=== PATIENT | male | born 1985 | race American Indian/Alaskan Native ===

== ENCOUNTER 2017-05-10 03:52 | Emergency (ER) | payer OTHER ==
--- NOTE | 2017-05-10 04:51 | XRay Report ---
FINAL REPORT EXAM: XR CHEST ROUTINE 2V HISTORY: Shortness of breath TECHNIQUE: PA and lateral views of the chest were submitted. FINDINGS: Heart size and mediastinum appear normal. The lungs are clear. Pleural fluid is not seen. The bones soft tissues well maintained. IMPRESSION: No active chest disease.
[2017-05-10 05:47] LABS: Basophils # (Auto) 0.1 K/mm3 (0.0-0.1); Basophils % (Auto) 0.5 % (0.0-1.8); Eosinophils % (Auto) 0.1 % (0.0-4.3); Hematocrit 42.1 % (35.5-45.6); Hemoglobin 14.1 gm/dl (11.8-15.2); Lymphocytes # (Auto) 1.3 K/mm3 (1.2-5.4); Lymphocytes % (Auto) 13.1 % (13.4-35.0); Mean Corpuscular HGB Conc 34 % (32-34); Mean Corpuscular Hemoglobin 32 pg (28-32); Mean Corpuscular Volume 94 fl (84-94); Monocytes # (Auto) 0.7 K/mm3 (0.0-0.8); Monocytes % (Auto) 7.2 % (0.0-7.3); Platelet Count 208 K/mm3 (140-440); Red Blood Count 4.48 M/mm3 (3.65-5.03); Red Cell Distribution Width 13.9 % (13.2-15.2)
[2017-05-10 05:52] LABS: BUN/Creatinine Ratio 9; Blood Urea Nitrogen 7 mg/dL (9-20); Calcium 8.7 mg/dL (8.4-10.2); Hemolysis Index 1
[2017-05-10 07:03] LABS: Bilirubin,Urine NEG (Negative); Blood,Urine NEG (Negative); Color,Urine Straw (Yellow); Mucus,Urine FEW /HPF; Protein,Urine <15 mg/dL mg/dL (Negative); RBC,Urine < 1.0 /HPF (0.0-6.0); Urobilinogen,Urine < 2.0 mg/dL (<2.0); WBC,Urine < 1.0 /HPF (0.0-6.0)
--- NOTE | 2017-05-10 07:40 | Emergency Department Report ---
ED Shortness of Breath HPI - General Chief Complaint: Dyspnea/Respdistress Stated Complaint: SLOW BREATHING Time Seen by Provider: 05/10/17 07:39 Source: patient Mode of arrival: Ambulatory Limitations: No Limitations - History of Present Illness Initial Comments: The patient has a host of complaints. He states he was given a couple of drinks last night and then felt funny. He also states he has some "abscessed teeth and is going to see a dentist on Friday. In addition he complains of reflux symptoms and also coughing up yellow stuff. He's had no fever or chills. He does not have chest pain now. He states that when he does lifting at work his shoulders feel sore but otherwise does not describe any exertional chest pain. He is asymptomatic at this time. He states he had an HIV test within the last 2 years and that it was negative. MD Complaint: cough -: Gradual, days(s) Quality: other Consistency: intermittent, now resolved (shortness of breath resolved) Improves With: nothing Worsens With: nothing Context: recent URI Associated Symptoms: denies other symptoms (except as above) - Related Data Previous Rx's Medication Instructions Recorded Last Taken Type Lansoprazole 15 mg PO BID #30 capsule. 05/10/17 Unknown Rx Sulfamethoxazole/Trimethoprim 1 each PO BID #14 tablet 05/10/17 Unknown Rx [Bactrim DS TAB] Allergies Allergy/AdvReac Type Severity Reaction Status Date / Time No Known Allergies Allergy Unverified 05/10/17 04:17 ED Review of Systems ROS: Stated complaint: SLOW BREATHING Other details as noted in HPI Constitutional: denies: chills, fever Eyes: denies: eye pain, eye discharge, vision change ENT: denies: ear pain, throat pain Respiratory: cough, shortness of breath. denies: wheezing Cardiovascular: denies: chest pain, palpitations Endocrine: no symptoms reported Gastrointestinal: other (reflux of yellow material). denies: abdominal pain, nausea, diarrhea Genitourinary: denies: urgency, dysuria Musculoskeletal: denies: back pain, joint swelling, arthralgia Skin: denies: rash, lesions Neurological: denies: headache, weakness, paresthesias Psychiatric: denies: anxiety, depression Hematological/Lymphatic: denies: easy bleeding, easy bruising ED Past Medical Hx - Past Medical History Previous Medical History?: Yes Additional medical history: bronchitis - Surgical History Past Surgical History?: No - Social History Smoking Status: Current Every Day Smoker Substance Use Type: Alcohol, Cocaine, Marijuana - Medications Home Medications: Home Medications Medication Instructions Recorded Confirmed Last Taken Type Lansoprazole 15 mg PO BID #30 capsule. 05/10/17 Unknown Rx Sulfamethoxazole/Trimethoprim 1 each PO BID #14 tablet 05/10/17 Unknown Rx [Bactrim DS TAB] ED Physical Exam - General Limitations: No Limitations General appearance: alert, in no apparent distress - Head Head exam: Present: atraumatic, normocephalic - Eye Eye exam: Present: normal appearance. Absent: scleral icterus - ENT ENT exam: Present: mucous membranes moist, other (a few superficial dental caries are noted. No gingival reaction no abscess) - Neck Neck exam: Present: normal inspection. Absent: tenderness, meningismus - Respiratory Respiratory exam: Present: normal lung sounds bilaterally. Absent: respiratory distress - Cardiovascular Cardiovascular Exam: Present: regular rate, normal rhythm. Absent: systolic murmur, diastolic murmur, rubs, gallop - GI/Abdominal GI/Abdominal exam: Present: soft, normal bowel sounds. Absent: distended, tenderness, guarding, rebound, rigid - Rectal Rectal exam: Present: deferred - Extremities Exam Extremities exam: Present: normal inspection - Back Exam Back exam: Present: normal inspection - Neurological Exam Neurological exam: Present: alert, oriented X3, CN II-XII intact. Absent: motor sensory deficit - Psychiatric Psychiatric exam: Present: normal affect, normal mood - Skin Skin exam: Present: warm, dry, intact, normal color. Absent: rash - Other Other exam information: Odor of alcohol apparent. The patient is awake alert and oriented 3 and fully ambulatory ED Course Vital Signs 05/10/17 05/10/17 05/10/17 04:17 06:18 06:25 Temperature 98.2 F 97.9 F Pulse Rate 90 65 Respiratory 18 16 16 Rate Blood Pressure 124/88 Blood Pressure 121/85 [Right] O2 Sat by Pulse 99 99 100 Oximetry ED Medical Decision Making - Lab Data Result diagrams: 05/10/17 05:23 05/10/17 05:23 Laboratory Results - last 24 hr 05/10/17 05/10/17 05/10/17 05:23 05:23 06:18 WBC 10.0 RBC 4.48 Hgb 14.1 Hct 42.1 MCV 94 MCH 32 MCHC 34 RDW 13.9 Plt Count 208 Lymph % (Auto) 13.1 L Gaines % (Auto) 7.2 Eos % (Auto) 0.1 Baso % (Auto) 0.5 Lymph # 1.3 Gaines # 0.7 Eos # 0.0 Baso # 0.1 Seg Neutrophils % 79.1 H Seg Neutrophils # 7.9 H Sodium 139 Potassium 4.1 Chloride 100.6 Carbon Dioxide 29 Anion Gap 14 BUN 7 L Creatinine 0.8 Estimated GFR > 60 BUN/Creatinine Ratio 9 Glucose 88 Calcium 8.7 Urine Color Straw Urine Turbidity Clear Urine pH 8.0 H Ur Specific [place] 1.003 Urine Protein <15 mg/dl Urine Glucose (UA) Neg Urine Ketones Neg Urine Blood Neg Urine Nitrite Neg Urine Bilirubin Neg Urine Urobilinogen < 2.0 Ur Leukocyte Esterase Neg Urine WBC (Auto) < 1.0 Urine RBC (Auto) < 1.0 U Epithel Cells (Auto) < 1.0 Urine Mucus Few - Radiology Data Radiology results: report reviewed (chest x-ray showed no acute process) Critical care attestation.: If time is entered above; I have spent that time in minutes in the direct care of this critically ill patient, excluding procedure time. ED Disposition Clinical Impression: Dental caries GERD (gastroesophageal reflux disease) Qualifiers: Esophagitis presence: without esophagitis Qualified Code(s): K21.9 - Gastro- esophageal reflux disease without esophagitis URI (upper respiratory infection) Qualifiers: URI type: unspecified viral URI Qualified Code(s): J06.9 - Acute upper respiratory infection, unspecified Disposition: OP ADMIT IP TO THIS HOSP Is pt being admited?: No Does the pt Need Aspirin: No Condition: Stable Instructions: Gastroesophageal Reflux Disease (ED), Dental Caries (ED), Acute Bronchitis (ED) Additional Instructions: See dentist as planned. Follow up with a primary care provider. Rx as directed. Prescriptions: Lansoprazole 15 mg PO BID #30 capsule. Sulfamethoxazole/Trimethoprim [Bactrim DS TAB] 1 each PO BID #14 tablet Referrals: CL GARCIA MD [Primary Care Provider] - 3-5 Days [facility] [Provider Group] - 3-5 Days Time of Disposition: 08:34
[2017-05-10 09:37] VITALS: BP 117/71
== END 2017-05-10 08:15 | disposition admitted as inpatient to this hospital (09) ==
LOC: ED 03:52
DX: K02.9 Dental caries, unspecified (principal); J06.9 Acute upper respiratory infection, unspecified; K21.9 Gastro-esophageal reflux disease without esophagitis; F17.200 Nicotine dependence, unspecified, uncomplicated; F14.10 Cocaine abuse, uncomplicated; F12.10 Cannabis abuse, uncomplicated
CPT/HCPCS: 36415; 71046; 80048; 81001; 85025; 93005; 93010

== ENCOUNTER 2017-05-20 18:42 | Emergency (ER) | payer OTHER ==
--- NOTE | 2017-05-20 20:32 | Emergency Department Report ---
Chief Complaint: Skin Rash Stated Complaint: MEDICATION ISSUE Time Seen by Provider: 05/20/17 20:11 - HPI History of Present Illness: She is a 31-year-old male who is presenting with a penile S rash. Patient states he got some bleach on his penis about a week ago he's also been taking some Bactrim for toothache and now he is breaking out on his penis. Patient had no penile discharge patient states he feels like the skin is coming off of his penis - ROS Review of Systems: Assessment reviewed are negative - Exam Vital Signs: Vital Signs 05/20/17 18:58 Temperature 98.7 F Pulse Rate 81 Respiratory 18 Rate Blood Pressure 120/71 O2 Sat by Pulse 100 Oximetry Physical Exam: I did do a brief physical exam on the patient's penis he has some round not erythematous lesions S have slight hyperpigmentation. There is no penile discharge no testicular swelling. MSE screening note: Focused history and physical exam performed. Due to findings the following was ordered: ED Medical Decision Making - Medical Decision Making Patient has been advised that he most likely needs to want to stop putting multiple random creams on his penis. Patient after the bleach exposure didn't put triple antibiotic ointment and antifungal cream olive oil as been put putting a lot of things on his skin. May continue to be irritating to the patient is advised to Red soap and water and keep the area clean. Suspect patient has had a skin lesion for approximately a week I am referring him to a dermatology clinic. Patient is not medical emergency and will be referred to a code clerk and is choosing to not pay a co-pay here today. ED Disposition for MSE Clinical Impression: Skin lesion Disposition: MED SCREENING EXAM-LEFT Is pt being admited?: No Does the pt Need Aspirin: No Condition: Stable Referrals: SANDRO RUSSELL MD [Staff Physician] - 3-5 Days YOMI BRADFORD MD [Staff Physician] - 3-5 Days
[2017-05-20 20:40] VITALS: BP 113/76
== END 2017-05-20 20:40 | disposition left against medical advice (07) ==
LOC: ED 18:42
DX: L98.9 Disorder of the skin and subcutaneous tissue, unspecified (principal)
CPT/HCPCS: 99282